=== PATIENT | female | born 1990 | race Caucasian/White ===

== ENCOUNTER 2016-10-09 20:37 | Emergency (ER) | payer MEDICARE ==
[~2016-10-09 20:37] MED LIST: BUSPIRONE HCL7.5 MG PO; GLUCOPHAGE500 MG PO; HYDROCHLOROTH12.5 MG PO; IBUPROFEN600 MG PO; IRON15 MG/1 ML PO; NORCO 5-325 TA1 EACH PO; VISTARIL25 MG PO; ZOLOFT25 MG PO
[2016-10-10 03:06] LABS: HEMOGLOBIN 12.7 gm/dl (12.3-15.3); RED BLOOD COUNT 4.81 M/UL (4.00-5.10)
[2016-10-10 03:18] LABS: BUN/CREATININE RATIO 9 (0-10)
== END 2016-10-10 06:41 | disposition home or self-care (01) ==
LOC: ER1 20:37
PROVIDERS: Physician Assistant
DX: R10.9 Unspecified abdominal pain (principal); E87.6 Hypokalemia; R11.2 Nausea with vomiting, unspecified; G93.2 Benign intracranial hypertension; I10 Essential (primary) hypertension; C81.90 Hodgkin lymphoma, unspecified, unspecified site; Z90.49 Acquired absence of other specified parts of digestive tract; Z88.0 Allergy status to penicillin; Z88.2 Allergy status to sulfonamides; Z79.891 Long term (current) use of opiate analgesic; Z79.84 Long term (current) use of oral hypoglycemic drugs; Z79.899 Other long term (current) drug therapy
CPT/HCPCS: 36415; 51701; 70450; 71010; 72040; 74000; 80053; 81001; 83690; 85025; 87040; 87086; 99284

== ENCOUNTER → 2020-06-20 | Outpatient (CLI) | payer OTHER | LOC: CT 08:21 | DX: R16.1 Splenomegaly, not elsewhere classified (principal); C81.18 Nodular sclerosis Hodgkin lymphoma, lymph nodes of multiple sites; D50.9 Iron deficiency anemia, unspecified; K76.0 Fatty (change of) liver, not elsewhere classified | CPT/HCPCS: Q9967 ==